=== PATIENT | female | born 1945 | race Caucasian/White ===

== ENCOUNTER 2024-03-14 13:24 | Day surgery (SDC) | payer MEDICARE, OTHER ==
[2024-03-13 10:07] VITALS: BMI 20.6
[2024-03-14] MEDS ORDERED: CEFAZOLIN 2 GM VIAL ONE (13:31)
[2024-03-14] MEDS ORDERED: Bupivacaine PF 0.5% 30 ML VIAL ONE (13:32)
[2024-03-14] MEDS ORDERED: fentaNYL 50 mcg/mL 1 mL Vial ONE ×2 (13:51→15:04)
[2024-03-14] MEDS ORDERED: PROPOFOL 20 ML ONE (13:51)
[2024-03-14] MEDS ORDERED: PHENYLEPHRINE-NS 100 MCG/ML 10 ML SYRINGE ONE (14:26)
[2024-03-14] MEDS ORDERED: Ondansetron PF 4 MG/2 ML Vial ONE (14:26)
[2024-03-14] MEDS ORDERED: HYDROcodone/Acetaminophen 5/325 mg Tablet ONE (15:26)
== END 2024-03-14 15:57 | disposition home or self-care (01) ==
LOC: CSHSDC 13:24
PROVIDERS: ATTEND Podiatrist Foot & Ankle Surgery
PROC: 0YP90YZ Removal of Other Device from Right Lower Extremity, Open Approach (ICD-10-PCS; principal; 2024-03-14)
DX: T84.84XA Pain due to internal orthopedic prosthetic devices, implants and grafts, initial encounter (principal); J44.9 Chronic obstructive pulmonary disease, unspecified; M51.369 Other intervertebral disc degeneration, lumbar region without mention of lumbar back pain or lower extremity pain; G47.00 Insomnia, unspecified; K21.9 Gastro-esophageal reflux disease without esophagitis; M85.88 Other specified disorders of bone density and structure, other site; F32.A Depression, unspecified; Z98.890 Other specified postprocedural states; Z91.012 Allergy to eggs; Z88.1 Allergy status to other antibiotic agents; Z79.899 Other long term (current) drug therapy; Y83.1 Surgical operation with implant of artificial internal device as the cause of abnormal reaction of the patient, or of later complication, without mention of misadventure at the time of the procedure
CPT/HCPCS: 20680; 73620; J0665; J2405; J2704; J3010